=== PATIENT | female | born 1995 | race Two or more races ===

== ENCOUNTER → 2024-12-08 | Outpatient (CLI) | payer BC, SELFPAY ==
[2024-12-08 11:45] LABS: Collection Type, Urine Clean Catch
[2024-12-08 12:17] LABS: Basophils % (Auto) 0 % (0-2.5); Eosinophils # (Auto) 0.2 Thou/mm3 (0.0-0.5); Eosinophils % (Auto) 2 % (0-10); Hemoglobin 12.7 g/dL (12.0-16.0); Immature Granulocytes % (Auto) 0 % (0-0); Immature Granulocytes Auto 0.05 Thou/mm3 (0.00-0.00); Lymphocytes # (Auto) 3.5 Thou/mm3 (1.0-4.8); Lymphocytes % (Auto) 30 % (10-50); Mean Corpuscular HGB Conc 32.6 g/dl (31.0-37.0); Mean Corpuscular Hemoglobin 27.8 pg (25.0-35.0); Mean Corpuscular Volume 85 fL (80-100); Monocytes # (Auto) 0.7 Thou/mm3 (0.0-0.8); Monocytes % (Auto) 6 % (0-12); Neutrophils % (Auto) 61 % (37-80); Nucleated Red Blood Cell % 0 /100 WBC (0); Platelet Count 272 Thou/mm3 (140-440); RDW Standard Deviation 41.9 fL (36.4-46.3); Red Blood Count 4.57 Miln/mm3 (4.00-5.20); White Blood Count 11.5 Thou/mm3 (3.6-11.0)
[2024-12-08 12:29] LABS: Alanine Aminotransferase 16 U/L (10-49); Albumin, Serum 4.2 gm/dL (3.5-5.0); Albumin/Globulin Ratio 1.5 (1.2-2.2); Alkaline Phosphatase 105 U/L (46-116); Anion Gap 12 (7-16); BUN/Creatinine Ratio 14 Ratio (12-20); Bilirubin,Total 0.3 mg/dL (0.3-1.2); Blood Urea Nitrogen 13 mg/dL (9-23); Cardiac Risk Estimate 3.8 RATIO (3.7-5.6); Chloride 105 mMol/L (98-107); Cholesterol 216 mg/dL (132-200); Creatinine (Component) 0.9 mg/dL (0.6-1.3); Globulin 2.8 gm/dL (2.3-3.5); Glucose 99 mg/dL (74-106); Glucose Estimated Average 108 mg/dL (80-131); HDL Cholesterol 57 mg/dL (40-60); Hemoglobin A1C 5.4 % Hgb (4.8-6.0); LDL Cholesterol,Calculated 135 mg/dL (0-130); Osmolality,Calculated 281 (275-295); Potassium 3.7 mMol/L (3.4-5.1); Sodium 141 mMol/L (136-145); Thyroid Stimulating Hormone 6.47 uIU/mL (0.55-4.78); Triglycerides 118 mg/dL (30-150); eGFR > 60 See Note
[2024-12-08 12:32] LABS: Bilirubin,Urine Negative (Negative); Blood,Urine 1+ (Negative); Clarity,Urine Clear (Clear/Hazy); Color,Urine Lt-Yellow (Lt Yel-Yel); Culture Indicated,Urine Not Indicated; Glucose, Urine Negative (Negative); Ketones,Urine Negative (Negative); Leukocyte Esterase,Urine Negative (Negative); Nitrite,Urine Negative (Negative); PH,Urine 5.5 (5.0-7.0); Protein,Urine Negative (Neg - Trace); RBC,Urine 2 /hpf (0-3); Specific Gravity,Urine 1.029 (1.001-1.035); Squamous Epithelial Cell,Urine 1 /hpf (0-5); Urobilinogen,Urine Negative mg/dL (0.0-1.0); WBC,Urine 1 /hpf (0-5)
[2024-12-08 13:51] LABS: Vitamin D 25 Hydroxy Total 6.4 ng/mL (7.3-40.2)
[2024-12-25 06:52] LABS: Cortisol,total,LC/MS/MS* 1.1 mcg/dL; IgE, Serum* 342 kU/L (114 OR LESS)
== END | disposition home or self-care (01) ==
LOC: COPL 10:39
PROVIDERS: PCP Family Medicine; Referring Provider Registered Nurse; Visit Provider Registered Nurse
DX: Z00.00 Encounter for general adult medical examination without abnormal findings (principal)
CPT/HCPCS: 36415; 80053; 80061; 81001; 82306; 82533; 82785; 83036; 84443; 85025

== ENCOUNTER → 2025-01-27 | Outpatient (CLI) | payer BC, SELFPAY ==
[2025-01-27 13:40] LABS: Free T4 (Free Thyroxine) 1.38 ng/dL (0.89-1.76); Thyroid Stimulating Hormone 1.76 uIU/mL (0.55-4.78)
== END | disposition home or self-care (01) ==
LOC: COPL 11:52
PROVIDERS: PCP Registered Nurse; Referring Provider Registered Nurse; Visit Provider Registered Nurse
DX: E03.9 Hypothyroidism, unspecified (principal)
CPT/HCPCS: 36415; 84439; 84443

== ENCOUNTER → 2025-03-04 | Outpatient (CLI) | payer BC, SELFPAY ==
--- NOTE | 2025-03-04 09:02 | XR_ITS ---
Examination: PA lateral chest 2 views TECHNIQUE: Upright PA lateral chest 2 views Date and time: March 04, 2025 0912 hours INDICATIONS: Coughing one month chest pain one week. FINDINGS: Pectus excavatum deformity accentuates left ventricle. No pneumonia or pulmonary edema. The osseous structures are intact IMPRESSION: No pneumonia identified.
== END | disposition home or self-care (01) ==
PROVIDERS: Referring Provider Student in an Organized Health Care Education/Training Program; Visit Provider Student in an Organized Health Care Education/Training Program
DX: R05.9 Cough, unspecified (principal)
CPT/HCPCS: 71046

== ENCOUNTER 2025-03-14 15:08 | Emergency (ER) | payer BC, SELFPAY ==
[2025-03-14 15:34] VITALS: BP 143/105; BP 155/103; PULSE 99; RESP 24; TEMP 37.2; O2SAT 91; BMI 37.4
[2025-03-14] MEDS: IPRATROPIUM RT 0.5 MG/ 2.5 ML NEBU INH (16:15)
[2025-03-14 16:16] VITALS: PULSE 82
[2025-03-14] MEDS: ALBUTEROL RT 2.5 MG/0.5 ML NEBU 5 MG INH (16:16)
[2025-03-14 16:19] VITALS: PULSE 87; RESP 20; O2SAT 98
--- NOTE | 2025-03-14 17:44 | XR_ITS ---
Examination: PA chest single view Technique: Upright PA chest single view Date and time: March 14, 2025 1751 hrs., Comparison 03/04/2025 Indications: Chest pain shortness of breath coughing today Findings: Pectus deformity obscures the right cardiac contour. Mild prominence left ventricle likely related to the pectus deformity No pneumonia or pulmonary edema The osseous structures are intact Impression: No pneumonia or pulmonary edema
--- NOTE | 2025-03-14 17:53 | EDNOTE_ITS ---
<Statement entered by Lucretia Mccarty MD - 03/15/25 06:01> As co-signing physician, I was present and available for consult prn. I concur with the plan and care as documented by the midlevel provider. ED SOB =RME/HPI General Chief Complaint: Shortness of Breath/Dyspnea Stated Complaint: SOB/WHEEZING Time Seen by Provider: 03/14/25 15:38 Arrival date/time: 03/14/25 15:08 RME / HPI RME / HPI Narrative: 30-year-old female presents to the ER complaining of cough and shortness of breath which have been present for the past 2 weeks at onset patient had a fever however that self resolved. Patient does have history of asthma however she has never been admitted or intubated and she only uses albuterol at home. Denies nausea vomiting, chest pain. MD Complaint: shortness of breath and cough Related Data Previous Rx's ?Medication ?Instructions ?Recorded albuterol sulfate 90 mcg/actuation 2 puff inhalation Q 6H PRN 03/14/25 aerosol inhaler shortness of breath or wheez ing #8.5 grams prednisone 20 mg tablet 40 mg PO QDAY #10 tabs 03/14 Allergies Allergy/AdvReac Type Severity Reaction Status Date / Time No Known Allergies Allergy Unverified 03/14/25 15:51 ED Exam Narrative Physical exam: Constitutional: Patient alert and oriented. Well appearing. No acute distress. Not toxic appearing. Head: Normocephalic, atraumatic. Eyes: Periorbital regions bilaterally normal to inspection. Conjunctiva clear bilaterally. Sclera anicteric bilaterally. Pupils equal, round, reactive to light bilaterally. Extraocular movements intact bilaterally. Mouth/Throat: Mucous membranes moist. No stridor or muffled voice. No trismus. Handling secretions without difficulty. Airway widely patent. Neck: Supple. Trachea midline. No JVD. No nuchal rigidity. No midline tenderness or step-offs. Normal range of motion. Respiratory: Normal effort. No accessory muscle use or respiratory distress. Lungs bilaterally with rhonchi along with inspiratory and expiratory wheezes. Cardiovascular: RRR. Normal S1/S2. No murmurs or rubs. Radial pulses intact bilaterally. Back: No midline tenderness or step-offs. No CVA tenderness to palpation bilaterally. Upper Extremities: No gross deformities. Lower Extremities: No gross deformities. No edema or calf tenderness. Neuro: Speech normal. No gross motor or sensory deficits to upper or lower extremities bilaterally. GCS 15. CN II?XII grossly intact. Skin: Warm, dry, normal color. Psych: Normal affect. Cooperative. Normal insight. Course Course Course Narrative: Patient presents to the ER complaining of fever at onset of cough and shortness of breath x 2 weeks and known concern for an acute exacerbation of her chronic bronchospastic disease i.e. asthma. I considered CHF however given lack of volume overload or orthopnea this is an unlikely diagnosis. I additionally considered a pulmonary embolism however patient is Wells low risk and clinical evaluation is not consistent with this diagnosis. I considered antibiotic treatment however given likely viral etiology is not indicated at this time patient has improved significantly after steroids and bronchodilators with continued access to further treatment as needed at home ED dispo pending ED course including x-ray to exclude occult pneumonia however anticipate will be ne gative and patient will be safe for outpatient follow-up with strict ER return precautions advised. I considered admission as well however patient feels well and is ambulating without difficulty or recurrence of shortness of breath in ER and is a good candidate for outpatient treatment. Quality Measures none Orders Category Date Time Status XR chest 1V portable Stat Exams 03/14/25 17:44 Completed HCG Qualitative,Urine Stat Lab 03/14/25 18:12 Completed ALBUTEROL RT 0.5ml [Proventil Rt 0.5ml] Med 03/14/25 15:47 Discontinued 5 mg INH X1 ONE Ipratropium [place] Rt Litzy [Atrovent Rt Litzy] Med 03/14/25 15:38 Discontinued 0.5 mg INH X1 ONE Sodium Chloride Rt Litzy 0.9% [NS Rt Litzy 0.9%] Med 03/14/25 15:38 Active 3 ml INH PRN PRN predniSONE Med 03/14/25 15:46 Discontinued 60 mg PO X1 ONE Reevaluation(s) Reevaluation #1: At the time of reassessment, the patient remains alert and oriented ?3 with GCS 15. Vitals are normal, pain is controlled, and the patient is tolerating oral intake without nausea or vomiting. The patient is agreeable to discharge and verbalizes understanding of the diagnosis, studies, treatment plan, medications (including side effects/precautions), and strict ER return precautions as discussed in the ED. All concerns were addressed, and the patient is comfortable with the plan. Vital Signs Vital signs: Vital Signs Temperature 99.0 F 03/14/25 15:34 Pulse Rate 99 03/14/25 15:34 Respiratory Rate 24 H 03/14/25 15:34 Blood Pressure 155/103 H 03/14/25 15:34 Pulse Oximetry (%) 91 L 03/14/25 15:34 Oxygen Delivery Method Room Air 03/14/25 15:34 Shortness of Breath / Dyspnea Patient data External records reviewed:: None Clinical information provided by:: patient Social determinants that could affect healthcare access:: none Patient has the following chronic illnesses:: asthma How is presenting disease/condition affected by chronic disease/condition?: caused by Evaluation data The following diagnostics were reviewed and interpreted by me:: radiology exam(s) Lab and/or radiology exams considered but not ordered:: CTA Interpretation Summary: negative for acute cardiopulm abn Medications / Prescriptions Medications or Prescriptions considered but not ordered:: magnesium, not indicated Medication administrations:: Medication Administration History Sodium Chloride (Sodium Chloride Rt Litzy 0.9% 3 Ml Nebu) 3 ml INH PRN PRN PRN Reason: SOLN Stop: 04/13/25 15:37 Discontinued Medications Albuterol (Albuterol Rt 2.5 Mg/0.5 Ml Nebu) 5 mg INH X1 ONE Stop: 03/14/25 15:48 Last Admin: 03/14/25 16:16 Dose: 5 mg Documented By: EV Ipratropium [place] (Ipratropium Rt 0.5 Mg/ 2.5 Ml Nebu) 0.5 mg INH X1 ONE Stop: 03/14/25 15:39 Last Admin: 03/14/25 16:15 Dose: 0.5 mg Documented By: EV Prednisone (Prednisone 20 Mg Tablet) 60 mg PO X1 ONE Stop: 03/14/25 15:47 Last Admin: 03/14/25 16:09 Dose: 60 mg Documented By: OA see abve Consultations Consultation(s) initiated? (list below): No Diagnosis Shortness of Breath Differential Diagnosis: acute exacerbation of chronic obstructive airways disease and asthma with exacerbation Most likely diagnosis given after review of the tests above:: asthma exacerbation Admission Indicated Admission indicated?: not indicated Admission Request Was there a request for admission?: No Disposition Plan Disposition Plan: Discharge Discharge Attestation Discharge Attestation: The patient and all family members were given an opportunity to ask questions and understood the discharge instructions. Discharge instructions specifically effects, indications for sooner follow up or return to the emergency department, and the expected course of current diagnosis. Patient condition: Stable Discharge Plan Plan Patient Disposition: HOME (Self Care) Discharge Disposition comment: Follow up with your primary medical doctor within 24 hours. Return to the Emergency Room immediately for any new, worsening, continuing symptoms or any concerns at all. Return to the Emergency Room within 24 hours if you are unable to follow up with your primary medical doctor within 24 hours. Patient condition on transfer: Stable Prescriptions/Referrals Prescriptions/Med Rec: New prednisone 20 mg tablet 40 mg PO QDAY Qty: 10 0RF Taper: Prednisone Taper 20 mg DAILY for 2 Days and 0 Hour 10 mg DAILY for 2 Days and 0 Hour 5 mg DAILY for 7 Days and 0 Hour albuterol sulfate 90 mcg/actuation HFA aerosol inhaler 2 puff inhalation Q6H PRN (Reason: shortness of breath or wheezing) Qty: 8.5 0RF Problem List Clinical Impression: Asthma with exacerbation Patient/Caregiver Discharge Instructions Education Materials: Asthma Print Language: Peruvian Stand Alone Forms: Virgie Award Info., Patient Portal Info Letter PA/FRAME STYLIST Supervising Physician PA/KENNY Supervising Physician: Dr. Mccarty
[2025-03-14 18:02] VITALS: BP 140/95; PULSE 93; RESP 18; TEMP 37.1; O2SAT 95
[2025-03-14 18:32] LABS: HCG Qualitative,Urine Negative
== END 2025-03-14 19:28 | disposition home or self-care (01) ==
LOC: SERX 17:50
PROVIDERS: Emergency Provider Physician Assistant
DX: J45.901 Unspecified asthma with (acute) exacerbation (principal)
CPT/HCPCS: 71045; 81025; 94640; 99283; J7512